=== PATIENT | male | born 1995 | race African-American/Black ===

== ENCOUNTER 2016-06-22 17:00 | Emergency (ER) | payer OTHER ==
[2016-06-22] MEDS ORDERED: AZITHROMYCIN 250 MG TAB ONE (18:14)
[2016-06-22] MEDS ORDERED: LIDOCAINE 1% MDV 20 ML ONE (18:14)
[2016-06-22] MEDS ORDERED: CEFTRIAXONE 500 MG VIAL ONE (18:14)
== END 2016-06-22 19:00 | disposition home or self-care (01) ==
LOC: ER 17:00
DX: S39.012A Strain of muscle, fascia and tendon of lower back, initial encounter (principal); Z20.2 Contact with and (suspected) exposure to infections with a predominantly sexual mode of transmission
CPT/HCPCS: 72100; 81003; 87491; 87591; 96372; 99284; J0696